=== PATIENT | male | born 1950 | race Hispanic/Latino ===

== ENCOUNTER → 2018-08-30 | Emergency (ER) | payer MEDICARE ==
[~2018-08-30] VITALS: Ht 170.2 cm; Wt 112.9 kg
[~2018-08-30] MED LIST: ACETAMINOPHEN 325 MG TAB PO ONE; ASPIRIN 81 MG CHEW TAB PO ONE; ENOXAPARIN SODIUM INJ 100 MG/ML SYR SC STA; METOPROLOL SUCCINATE 50 MG TAB XL PO ONE; METOPROLOL TARTRATE INJ 1 MG/ML VIAL IV SCH; NITROGLYCERIN 2% OINT 1 GM PKT TOP ONE; ONDANSETRON HCL INJ 2 MG/ML VIAL IV PRN
--- NOTE | 2018-08-30 12:08 | Diagnostic Imaging Report ---
EXAM: XR CHEST 1 VIEW DATE: 08/30/2018 11:03 AM INDICATION: Atrial fibrillation, fatigue COMPARISON: None FINDINGS: Lines and Tubes: None Heart and Mediastinum: No acute cardiomediastinal findings. Lungs and Pleura: No significant pleural effusion, pneumothorax, or focal consolidation. Bones and Soft Tissues: No acute findings. IMPRESSION: 1. No acute cardiopulmonary findings. Signed by: Dr. Sami Azul MD on 08/30/2018 12:04 PM
[2018-08-30 12:28] LABS: BASOPHILS % 0.8 % (0.0-1.0); EOSINOPHILS # (AUTO) 0.1 (0.0-0.4); EOSINOPHILS % 2.1 % (0.0-6.0); HEMATOCRIT 42.5 % (38.2-49.6); HEMOGLOBIN 13.9 g/dL (14.0-18.0); LYMPHOCYTES # (AUTO) 0.9 (1.0-3.2); LYMPHOCYTES % 18.1 % (18.0-39.1); MEAN CORPUSCULAR HEMOGLOBIN 27.7 pg (28-32); MEAN CORPUSCULAR HGB CONC 32.7 g/dL (31-35); MEAN CORPUSCULAR VOLUME 84.8 fL (81-99); MONOCYTES # (AUTO) 0.3 (0.2-0.8); MONOCYTES % 6.2 % (4.4-11.3); NEUTROPHILS # (AUTO) 3.7 (2.1-6.9); NEUTROPHILS % 72.6 % (38.7-80.0); PLATELET COUNT 178 x10e3/uL (140-360); RED BLOOD COUNT 5.01 x10e6/uL (4.3-5.7); RED CELL DISTRIBUTION WIDTH 13.8 % (11.7-14.4)
[2018-08-30 12:41] LABS: ALANINE AMINOTRANSFERASE 80 IU/L (0-55); ALBUMIN 3.4 g/dL (3.5-5.0); ALBUMIN/GLOBULIN RATIO 1.1 (0.8-2.0); ALKALINE PHOSPHATASE 55 IU/L (40-150); ANION GAP 12.1 mmol/L (8-16); BLOOD UREA NITROGEN 10 mg/dL (7-26); BUN/CREATININE RATIO 10 (6-25); CALCIUM 8.8 mg/dL (8.4-10.2); CARBON DIOXIDE 23 mmol/L (22-29); CHLORIDE 102 mmol/L (98-107); CREATINE KINASE 252 IU/L (30-200); CREATININE, SERUM 0.99 mg/dL (0.72-1.25); EST GLOMERULAR FILTRATION RATE > 60 ML/MIN (60-); GLUCOSE 109 mg/dL (74-118); POTASSIUM 4.1 mmol/L (3.5-5.1); SODIUM 133 mmol/L (136-145)
== END | disposition left against medical advice (07) ==
LOC: ER 10:56
DX: R06.00 Dyspnea, unspecified (principal); R07.89 Other chest pain; I48.1 Persistent atrial fibrillation; I50.41 Acute combined systolic (congestive) and diastolic (congestive) heart failure; I10 Essential (primary) hypertension
CPT/HCPCS: 36415; 71045; 80053; 82550; 82553; 83880; 84484; 85025; 93005; 99284; J1650